=== PATIENT | male | born 1975 | race Two or more races ===

== ENCOUNTER 2019-05-22 04:15 | Emergency (ER) | payer OTHER ==
[2019-05-22] MEDS ORDERED: ACETAMINOPHEN 325 MG TABLET PO ONE (04:35)
[2019-05-22] MEDS ORDERED: ACETAMINOPHEN 325 MG TABLET ONE (04:36)
--- NOTE | 2019-05-22 05:08 | RADIOLOGY REPORT (SQ) ---
EXAM DESCRIPTION: X-RAY SHOULDER TWO OR MORE VIEWS CLINICAL HISTORY: 43 years Male Left shoulder pain. Reports prior dislocation. COMPARISON: None TECHNIQUE: AP internal and external rotation and Y scapular views were obtained at 0458 hours on 05/22/2019. FINDINGS/IMPRESSION: No acute fracture or dislocation is noted. There is mild caudal subluxation of the left humeral head which may be related to technique or a large glenohumeral joint effusion. No Hill-Sachs or Bankart lesions are identified.
--- NOTE | 2019-05-22 05:29 | ER Document Report ---
HPI - HPI Time Seen by Provider: 05/22/19 04:48 Pain Level: 5 Context: Patient is a 43-year-old male with a history of shoulder dislocations, hyperlipidemia, and headaches who presents emergency department with left shoulder pain. Patient states that he was coughing in his sleep and he woke up and felt his shoulder pop out of place. Patient states that just prior to arrival, he was able to put his shoulder back into place. Patient states that he has had multiple episodes of shoulder dislocations and he states, "I know how to put my shoulder back into place." Patient has Naprosyn at home for shoulder pain. Patient states that he has history of a "chip" in his left shoulder. - CONSTITUTIONAL Constitutional: DENIES: Fever, Chills - EENT EENT: DENIES: Sore Throat, Ear Pain, Eye problems - NEURO Neurology: DENIES: Headache, Weakness, Vision blurred, Dizzinesss / Vertigo - CARDIOVASCULAR Cardiovascular: DENIES: Chest pain - RESPIRATORY Respiratory: DENIES: Trouble Breathing, Coughing - GASTROINTESTINAL Gastrointestinal: DENIES: Abdominal Pain, Black / Bloody Stools - URINARY Urinary: DENIES: Dysuria, Urgency, Frequency - MUSCULOSKELETAL Musculoskeletal: REPORTS: Extremity pain - left shoulder Past Medical History - Social History Smoking Status: Current Every Day Smoker Chew tobacco use (# tins/day): No Frequency of alcohol use: Occasional Drug Abuse: None Family History: Reviewed & Not Pertinent Patient has suicidal ideation: No Patient has homicidal ideation: No - Past Medical History Cardiac Medical History: Reports: Hx Hypercholesterolemia Neurological Medical History: Reports: Hx Migraine Psychiatric Medical History: Reports: Hx Depression Past Surgical History: Reports: Hx Testicular Surgery - as child Vertical Provider Document - CONSTITUTIONAL Agree With Documented VS: Yes Exam Limitations: No Limitations General Appearance: No Apparent Distress - HEENT HEENT: Atraumatic, Normocephalic, PERRLA - NECK Neck: Normal Inspection - RESPIRATORY Respiratory: Breath Sounds Normal, No Respiratory Distress - CARDIOVASCULAR Cardiovascular: Regular Rate, Regular Rhythm Pulses: Normal: Radial - MUSCULOSKELETAL/EXTREMETIES Musculoskeletal/Extremeties: FROM, Tender - left shoulder, No Edema - NEURO Level of Consciousness: Awake, Alert, Appropriate Motor/Sensory: No Motor Deficit, No Sensory Deficit - DERM Integumentary: Warm, Dry, No Rash Course - Re-evaluation Re-evalutation: 05/22/19 05:30 Left shoulder x-ray is negative for any acute fracture. Patient will be placed in a sling. He will follow-up with orthopedics. Capillary refill less than 3 seconds. Radial pulse 2+. Patient is able to flex and extend all digits with no difficulty. Instructed patient to continue his Naprosyn as needed. Advised him to add Tylenol to his pain medication regimen. He is in agreement with this plan. Follow-up precautions were given. Verbal discharge instructions were given to the patient. They verbalized understanding. They are stable for discharge. - Vital Signs Vital signs: Temp Pulse Resp BP Pulse Ox 98.1 F 93 17 158/101 H 98 05/22/19 04:22 05/22/19 04:22 05/22/19 04:22 05/22/19 04:22 05/22/19 04:22 Procedures - Immobilization Left Shoulder Pre-Proc Neuro Vasc Exam: Normal Immobilizer type: Sling Performed by: PCT Post-Proc Neuro Vasc Exam: Normal, Unchanged from pre-exam Alignment checked and good: Yes Discharge - Discharge Clinical Impression: Left shoulder pain Qualifiers: Chronicity: acute Qualified Code(s): M25.512 - Pain in left shoulder Condition: Stable Disposition: HOME, SELF-CARE Additional Instructions: You seen today in the emergency department for left shoulder pain. Your x-ray is normal. Please take your Naprosyn at home as directed. You can also take Tylenol 1000 mg every 6 hours as needed for your pain. Follow-up with orthopedics as needed. Referrals: YUNG HEBERT MD [ACTIVE STAFF] - Follow up as needed JANA RODRIGUEZ JR, DO [ACTIVE PROVISIONAL STAFF] - Follow up as needed DAVID SEXTON MD [ACTIVE PROVISIONAL STAFF] - Follow up as needed
[2019-05-22 05:33] VITALS: BP 148/102
== END 2019-05-22 05:47 | disposition home or self-care (01) ==
LOC: ER 04:15
DX: M25.512 Pain in left shoulder (principal); F17.200 Nicotine dependence, unspecified, uncomplicated
CPT/HCPCS: 99283

== ENCOUNTER 2019-12-14 17:26 | Emergency (ER) | payer OTHER ==
--- NOTE | 2019-12-14 18:49 | ER Document Report ---
ED Medical Screen (RME) - General Chief Complaint: Cough Stated Complaint: COUGH Time Seen by Provider: 12/14/19 18:39 Mode of Arrival: Ambulatory Information source: Patient Notes: HPI; 44-year-old male presents to the emergency room complaining of a cough with shortness of breath and decreased appetite for the past 3 days. States he started running a fever of just under 100 on Thursday. Has been taking Tylenol with minimal relief. He denies any recent travel. He denies any COVID-19 exposure. PE: Alert and oriented x3. Lungs with rhonchi and wheezes noted in the left lower lobe. Heart: Tachycardic without murmurs, rubs, gallops. Patient was evaluated during the global COVID-19 pandemic and that diagnosis was suspected/considered upon their initial presentation. Their evaluation, treatment and testing was consistent with current guidelines for patients who presents with complaints or systems that may be related to COVID-19. I have greeted and performed a rapid initial assessment of this patient. A comprehensive ED assessment and evaluation of the patient, analysis of test results and completion of the medical decision making process will be conducted by additional ED providers. I have specifically instructed the patient or family members with the patient to immediately return to any nursing staff should anything change in the patient's condition or with their chief complaint. TRAVEL OUTSIDE OF THE [place] IN LAST 30 DAYS: No - Related Data Allergies/Adverse Reactions: No Known Allergies Allergy (Unverified 05/22/19 04:32) Past Medical History - Past Medical History Cardiac Medical History: Reports: Hx Hypercholesterolemia Neurological Medical History: Reports: Hx Migraine Psychiatric Medical History: Reports: Hx Depression Past Surgical History: Reports: Hx Testicular Surgery - as child Physical Exam - Vital signs Vitals: Temp Pulse Resp BP Pulse Ox 98.6 F 119 H 20 166/106 H 98 12/14/19 17:34 12/14/19 17:34 12/14/19 17:34 12/14/19 17:34 12/14/19 17:34 Course - Vital Signs Vital signs: Temp Pulse Resp BP Pulse Ox 98.6 F 119 H 20 166/106 H 98 12/14/19 17:34 12/14/19 17:34 12/14/19 17:34 12/14/19 17:34 12/14/19 17:34
--- NOTE | 2019-12-14 19:26 | RADIOLOGY REPORT (SQ) ---
EXAM DESCRIPTION: CHEST SINGLE VIEW IMAGES COMPLETED DATE/TIME: 12/14/2019 6:07 pm REASON FOR STUDY: cough. PUI. COMPARISON: None. EXAM PARAMETERS: NUMBER OF VIEWS: One view. TECHNIQUE: Single frontal radiographic view of the chest acquired. RADIATION DOSE: NA LIMITATIONS: None. FINDINGS: LUNGS AND PLEURA: No opacities, masses or pneumothorax. No pleural effusion. MEDIASTINUM AND HILAR STRUCTURES: No masses. Contour normal. HEART AND VASCULAR STRUCTURES: Heart normal in size. Normal vasculature. BONES: No acute findings. HARDWARE: None in the chest. OTHER: No other significant finding. IMPRESSION: NO ACUTE RADIOGRAPHIC FINDING IN THE CHEST. TECHNICAL DOCUMENTATION: JOB ID: [id number] 2010 [employer]- All Rights Reserved Reading location - IP/workstation name: [email or web address]
[2019-12-14 20:48] LABS: ABSOLUTE BASOPHILS # (AUTO) 0.1 10^3/uL (0.0-0.2); ABSOLUTE EOSINOPHILS # (AUTO) 0.2 10^3/uL (0.0-0.6); ABSOLUTE LYMPHOCYTES (AUTO) 1.3 10^3/uL (0.5-4.7); ABSOLUTE MONOCYTES (AUTO) 1.1 10^3/uL (0.1-1.4); ABSOLUTE NEUT (AUTO) 7.3 10^3/uL (1.7-8.2); BASOPHILS % (AUTO) 0.6 % (0-2); EOSINOPHILS % (AUTO) 1.7 % (0-6); HEMATOCRIT 46.5 % (37.9-51.0); HEMOGLOBIN 16.7 g/dL (13.5-17.0); LYMPHOCYTES % (AUTO) 13.2 % (13-45); MEAN CORPUSCULAR HEMOGLOBIN 32.1 pg (27.0-33.4); MEAN CORPUSCULAR HGB CONC 35.9 g/dL (32.0-36.0); MEAN CORPUSCULAR VOLUME 89 fl (80-97); MONOCYTES % (AUTO) 10.8 % (3-13); PLATELET COUNT 269 10^3/uL (150-450); RED CELL DISTRIBUTION WIDTH 13.8 % (11.5-14.0); SEGMENTED NEUTROPHILS % (AUTO) 73.7 % (42-78); TOTAL CELLS COUNTED % (AUTO) 100 %
[2019-12-14 21:03] LABS: A TYPE INFLUENZA AG NEGATIVE (NEGATIVE); B INFLUENZA AG NEGATIVE (NEGATIVE)
[2019-12-14 21:11] LABS: ALBUMIN 4.4 g/dL (3.5-5.0); ALKALINE PHOSPHATASE 89 U/L (38-126); ANION GAP 12 (5-19); ASPARTATE AMINO TRANSFERASE 37 U/L (17-59); BILIRUBIN,DIRECT 0.3 mg/dL (0.0-0.4); BILIRUBIN,TOTAL 0.8 mg/dL (0.2-1.3); BLOOD UREA NITROGEN 8 mg/dL (7-20); CALCIUM 9.6 mg/dL (8.4-10.2); CARBON DIOXIDE 23 mmol/L (22-30); CHLORIDE 106 mmol/L (98-107); GLUCOSE 90 mg/dL (75-110); POTASSIUM 4.6 mmol/L (3.6-5.0); TOTAL PROTEIN 6.9 g/dL (6.3-8.2)
--- NOTE | 2019-12-14 22:04 | EKG REPORT ---
SEVERITY:- OTHERWISE NORMAL ECG - SINUS TACHYCARDIA : Confirmed by: Emily Chavez 14-Dec-2019 22:03:33
[2019-12-14 23:57] VITALS: BP 150/103
--- NOTE | 2019-12-15 00:13 | ER Document Report ---
ED General - General Chief Complaint: Shortness Of Breath Stated Complaint: COUGH Time Seen by Provider: 12/14/19 18:39 Mode of Arrival: Ambulatory TRAVEL OUTSIDE OF THE [place] IN LAST 30 DAYS: No - HPI Notes: Patient is a 44-year-old male who presents to the emergency department for evaluation of fever, cough, body aches. Symptoms started on the 12th. He states he started all at once. He has had some nasal congestion. He states he is having some trouble with his sense of smell, but honestly he is unsure as to whether or not this is secondary to the nasal congestion. No nausea or vomiting. He has had some loose stools/diarrhea over the last 36 hours. He complains of body aches all over. - Related Data Allergies/Adverse Reactions: No Known Allergies Allergy (Verified 12/14/19 19:21) Past Medical History - General Information source: Patient - Social History Smoking Status: Current Every Day Smoker Frequency of alcohol use: Occasional Drug Abuse: None Family History: Reviewed & Not Pertinent - Past Medical History Cardiac Medical History: Reports: Hx Hypercholesterolemia Neurological Medical History: Reports: Hx Migraine Psychiatric Medical History: Reports: Hx Depression Past Surgical History: Reports: Hx Testicular Surgery - as child Review of Systems - Review of Systems Constitutional: See HPI EENT: See HPI Cardiovascular: No symptoms reported Respiratory: See HPI Gastrointestinal: See HPI Genitourinary: No symptoms reported Musculoskeletal: No symptoms reported Skin: No symptoms reported Neurological/Psychological: No symptoms reported -: Yes All other systems reviewed and negative Physical Exam - Vital signs Vitals: Temp Pulse Resp BP Pulse Ox 98.6 F 119 H 20 166/106 H 98 12/14/19 17:34 12/14/19 17:34 12/14/19 17:34 12/14/19 17:34 12/14/19 17:34 - Notes Notes: Vital signs reviewed, please refer to chart. Head is normocephalic, atraumatic. Pupils equal round, reactive to light. Neck is supple without meningismus. Heart is regular rate and rhythm. Lungs reveal expiratory wheezes throughout, moderate. Abdomen is soft, nontender, normoactive bowel sounds throughout. E xtremities without cyanosis, clubbing. Posterior calves are nontender. Peripheral pulses are equal. Skin is warm and dry. Patient is awake, alert, neurological exam is nonfocal. Course - Re-evaluation Re-evalutation: 12/15/19 00:12 Patient presents to the emergency department for evaluation. Laboratory investigations were also ordered through triage. Patient has unremarkable blood work, unremarkable x-ray, negative flu swab. Covid swab pending at this time. Patient's vital signs have normalized. He is reminded that he needs to quit smoking. He voiced understanding to this. Otherwise I will send him with a prescription for an albuterol inhaler and instructions on being a PUI. He is to return to the ER with worsening or new concerning symptoms of any sort. - Vital Signs Vital signs: Temp Pulse Resp BP Pulse Ox 98.4 F 94 20 150/103 H 99 12/14/19 23:56 12/14/19 23:56 12/14/19 23:56 12/14/19 23:56 12/14/19 23:56 - Laboratory Result Diagrams: 12/14/19 20:30 12/14/19 20:30 - Diagnostic Test Radiology reviewed: Reports reviewed Radiology results interpreted by me: 12/15/19 00:12 Chest X-Ray 12/14/19 18:45 IMPRESSION: NO ACUTE RADIOGRAPHIC FINDING IN THE CHEST. Discharge - Discharge Clinical Impression: Person under investigation for COVID-19 Upper respiratory infection Qualifiers: URI type: unspecified viral URI Qualified Code(s): J06.9 - Acute upper respiratory infection, unspecified Condition: Stable Disposition: HOME, SELF-CARE Instructions: COVID-19 Guidance for Persons Under Investigation, Fever ([facility]), Upper Respiratory Illness ([facility]), Viral Syndrome ([facility]) Additional Instructions: Rest, stay well-hydrated. Take Tylenol or ibuprofen as needed for body aches and fever. [id number] medications to help with symptoms. Follow-up with your primary care provider in 1 to 2 weeks. Return to the emergency department with worsening or new concerning symptoms of any sort.
== END 2019-12-15 00:52 | disposition home or self-care (01) ==
LOC: ER 17:26
DX: J06.9 Acute upper respiratory infection, unspecified (principal); Z20.828 Contact with and (suspected) exposure to other viral communicable diseases; R06.02 Shortness of breath; R50.9 Fever, unspecified; M79.10 Myalgia, unspecified site; F17.200 Nicotine dependence, unspecified, uncomplicated; E78.00 Pure hypercholesterolemia, unspecified
CPT/HCPCS: 93005; 99285; 36415; 85025; 87635; 80053; 84484; 87804; 71045; 93010; C9803